=== PATIENT | female | born 1970 | race Caucasian/White ===

== ENCOUNTER → 2022-03-24 | Day surgery (SDC) | payer BC ==
[~2022-03-24] MED LIST: BUPIVACAINE 0.5%/EPI 30 ML SDV INJ ONE; DEXAMETHASONE SOD PHOS INJ 4 MG/ML SDV IV ONE; EPINEPHRINE HCL 1:1000 1ML 1 MG/ML AMP ONE; HYDROCODONE/APAP 5MG-325MG TAB ONE; HYDROMORPHONE 1MG/1ML INJ ONE; LIDOCAINE HCL 1% LOCAL INJ 20 ML VIAL ONE; LIDOCAINE HCL 2% LOCAL INJ 5 ML SDV VIAL INJ ONE; NP THYROID120 MG PO; ONDANSETRON HCL INJ 2MG/ML 2ML 2 MG/ML VIAL IV ONE; POVIDONE IODINE 0.05% 0.05 % ML PO ONE; PROGESTERONE200 MG PO; PROPOFOL IV EMULSION 10 MG/ML 20 ML VIAL IV ONE; SEVOFLURANE INHAL SOLN 250 ML PEN BTL INH ONE; VYVANSE30 MG PO
[2022-03-24 09:30] VITALS: BP 120/78
== END | disposition home or self-care (01) ==
LOC: OR 05:30
PROVIDERS: ATTEND Orthopaedic Surgery
DX: S83.241A Other tear of medial meniscus, current injury, right knee, initial encounter (principal); S83.281A Other tear of lateral meniscus, current injury, right knee, initial encounter; D75.89 Other specified diseases of blood and blood-forming organs; M23.41 Loose body in knee, right knee; M22.41 Chondromalacia patellae, right knee; M67.51 Plica syndrome, right knee; X58.XXXA Exposure to other specified factors, initial encounter; Y93.41 Activity, dancing; Y92.009 Unspecified place in unspecified non-institutional (private) residence as the place of occurrence of the external cause; Y99.8 Other external cause status; Z01.810 Encounter for preprocedural cardiovascular examination; Z79.899 Other long term (current) drug therapy
CPT/HCPCS: 27599; 29879; 29880; 93005; C1713; J0171; J0690; J1100; J1170; J2001; J2405; J2704; 76000